=== PATIENT | female | born 1965 | race Caucasian/White ===

== ENCOUNTER 2019-11-27 15:29 | Emergency (ER) | payer BC, SELFPAY ==
--- NOTE | ~2019-11-27 | CT_ITS ---
EXAMINATION: CT abdomen pelvis w con EXAM DATE: 11/27/2019 16:36 INDICATION: Abdominal pain, epigastric pain. Symptoms for 3 days. TECHNIQUE: Spiral CT of the abdomen and pelvis was performed following intravenous injection of 100 m L Omnipaque 350. Axial, coronal and sagittal images were reviewed. The dose-length product (DLP) fo r this examination was 328.40 mGy-cm. The exposure was tailored according to patient size (auto mA e xposure control), and iterative reconstruction (ASIR) was used as additional dose reduction technique . There is no prior study for comparison. FINDINGS: The liver, spleen, adrenal glands and pancreas are unremarkable. Gallbladder is unremarkab le. No biliary obstruction. Portal and splenic veins are patent. Kidneys enhance symmetrically. T here is no hydronephrosis. The uterus is retroverted and morphologically normal. The bladder is u nremarkable. There is no retroperitoneal or pelvic lymphadenopathy. There is mild scattered arteri osclerotic disease. The appendix is normal. There is edema of the gastric pyloric wall, consistent with peptic ulcer dis ease. There is expected amount of colonic stool. No free intraperitoneal gas. The heart is betsey l in size. There are no pericardial or pleural effusions. The lung bases are unremarkable. The bon es are unremarkable. IMPRESSION: Moderate gastric antral wall edema consistent with peptic ulcer disease. No transmural ul ceration. Reviewed, dictated and finalized at location A. IMPRESSION: Moderate gastric antral wall edema consistent with peptic ulcer dis ease. No transmural ulceration.
[2019-11-27 15:33] VITALS: BP 173/82; PULSE 60; RESP 16; TEMP 36.5; O2SAT 100
--- NOTE | 2019-11-27 15:44 | ECG_ITS ---
Measurements Intervals [place] Rate: 54 P: 44 CT: 139 QRS: 43 QRSD: 97 T: 55 QT: 410 QTc: 391 Interpretive Statements SINUS BRADYCARDIA INCOMPLETE RIGHT BUNDLE BRANCH BLOCK BASELINE ARTIFACT- I, III BORDERLINE ECG Electronically Signed On 11-27-2019 18:14:47 CDT by Jarad Sanchez D.O.
--- NOTE | 2019-11-27 15:45 | ED.ABDPAIN ---
HPI - Abdominal Pain General Chief Complaint: Abdominal Pain Stated Complaint: EPIGASTRIC PAIN X3D Time Seen by Provider: 11/27/19 15:41 Source: patient Mode of arrival: ambulatory Limitations: no limitations History of Present Illness HPI narrative: Pt c/o epigastric pain, burning, 01/07, non radiating, started today. Denies cp, sob, n/v/d or fever. Radiation: none Migration to: no migration Exacerbating factors: nothing Relieving factors: nothing Associated symptoms: denies other symptoms Related Data Home Medications Medication Instructions Recorded Confirmed bupropion HCl [Wellbutrin XL] 150 mg PO QAM 11/27/19 Allergies Allergy/AdvReac Type Severity Reaction Status Date / Time No Known Allergies Allergy Mild Verified 11/27/19 15:37 Review of Systems Review of Systems: All systems reviewed & are unremarkable except as noted in HPI and below Constitutional: Constitutional: Denies body ache(s), Denies chills, Denies excessive sweating, Denies fatigue, Denies fever(s), Denies headache(s), Denies lethargy, Denies malaise, Denies weakness and Denies weight loss Eyes: Eyes: Denies blurry vision, Denies change in vision and Denies loss of vision ENT: Denies dizziness, Denies ear discharge, Denies headache(s), Denies lip swelling, Denies epistaxis, Denies nasal congestion, Denies neck pain, Denies throat swelling and Denies tongue swelling Cardiovascular: Cardiovascular: Denies chest pain, Denies chest pain at rest, Denies chest pain with activity, Denies diaphoresis, Denies rapid heart rate, Denies edema, Denies irregular heart rhythm, Denies lightheadedness, Denies palpitations, Denies dyspnea and Denies dyspnea on exertion Respiratory: Respiratory: Denies chest congestion, Denies cough, Denies hemoptysis, Denies dyspnea and Denies dyspnea on exertion Gastrointestinal: Gastrointestinal: Denies melena, Denies hematochezia, Denies diarrhea, Denies nausea, Denies vomiting and Denies hematemesis Musculoskeletal: Musculoskeletal: Denies abnormal gait, Denies deformity, Denies joint swelling, Denies limited range of motion, Denies neck pain and Denies numbness Neurologic: Denies Abnormal speech present, Denies abnormal gait, Denies confusion, Denies dizziness, Denies headache(s), Denies focal weakness, Denies loss of vision, Denies numbness, Denies Other visual disturbances, Denies Sensory deficit (Neuro) and Denies weakness Psychiatric: Psychiatric: Denies confusion, Denies depression, Denies auditory hallucinations, Denies homicidal ideation and Denies suicidal ideation Endocrine: Endocrine: Denies cold intolerance, Denies excessive sweating, Denies fatigue, Denies heat intolerance and Denies palpitations Hematologic/Lymphatic: Hematologic/Lymphatic: Denies easy bleeding and Denies easy bruising Allergic/Immunologic: Allergic/Immunologic: Denies lip swelling, Denies throat swelling and Denies tongue swelling Exam Const: General: cooperative, healthy appearing, comfortable, no acute distress, well developed, alert and awake; No confusion Orientation/consciousness: oriented to person, oriented to place, oriented to time, patient oriented x3 and No confusion Limitations: no limitations HENMT: Head: normal to inspection, normocephalic and atraumatic Ears: hearing grossly normal bilaterally, TM normal on the right and TM normal on the left General nose exam: Normal external nose present, Normal nares present and No nasal discharge present Face and sinus: normal facial exam Mouth: Yes Normal oral and palatal mucosa present, Yes lip normal, Yes tongue normal and Yes oropharynx normal Throat: posterior oropharynx normal, tonsils normal and uvula midline Eyes: General: appearance normal, both eyes and all related structures Pupils: Equal, round and reactive pupils present EOM: EOMs intact bilaterally Neck: Neck: normal visual inspection, full ROM, no lymphadenopathy and no meningeal signs Chest: Chest palpation & inspection: n
[2019-11-27] MEDS: SODIUM CHLORIDE 0.9% IV 1,000 ML 999 ML IV CONT (15:55)
[2019-11-27 16:01] LABS: Basophils Percent Auto 0.3 % (0.2-1.2); Eosinophils Absolute Auto 0.1 K/mm3 (0-0.3); Hematocrit 39.8 % (37.0-47.0); Hemoglobin 13.2 g/dL (12.0-15.0); Immature Granulocyte Absolute 0.02 K/mm3 (0.00-0.031); Immature Granulocyte Percent A 0.3 % (0-0.5); Lymphocytes Absolute Auto 2.47 K/mm3 (0.9-3.2); Lymphocytes Percent Auto 31.5 % (18.3-44.2); Mean Corpuscular HGB Conc 33.2 g/dl (32-36); Mean Corpuscular Hemoglobin 29.3 pg (26-34); Mean Corpuscular Volume 88.4 fl (80-100); Mean Platelet Volume 10.9 fl (7.4-10.4); Monocytes Absolute Auto 0.6 K/mm3 (0.1-0.6); Monocytes Percent Auto 7.3 % (2.6-8.5); Neutrophils Absolute Auto 4.7 K/mm3 (1.3-6.7); Neutrophils Percent Auto 59.6 % (45.5-73.1); Platelet Count Result 285 k/mm3 (150-375); Red Cell Distribution Width 12.3 % (11.5-14.5); White Blood Count 7.9 K/mm3 (4.5-10.0)
[2019-11-27 16:03] LABS: Add Urine Microscopic? NO; Appearance Urine Clear (Clear); Bilirubin Urine Negative (Negative); Blood Urine Negative (Negative); Color Urine Colorless (Yellow); Glucose Urine UA Negative (Negative); Ketones Urine Negative (Negative); Leukocyte Esterase Ur Negative LEU/UL (Negative); Nitrate Urine Negative (Negative); Protein Urine Negative (Negative); Specific Grav Ur 1.005 (1.001-1.035); Urobilinogen Urine Negative mg/dL (<2.0)
[2019-11-27 16:13] LABS: Alanine Aminotransferase 21 U/L (4-35); Albumin Level 4.5 g/dL (3.5-5.1); Alkaline Phosphatase 65 U/L (38-126); Aspartate Amino Transferase 29 U/L (14-36); Bilirubin,Total 0.3 mg/dL (0.2-1.3); Blood Urea Nitrogen 9 mg/dL (7-17); Calcium 9.2 mg/dL (8.4-10.2); Carbon Dioxide 30 mmol/L (22-30); Chloride 101 mmol/L (98-107); Estimated CRCL calculation 53 ml/min; Estimated Glomerular Filt Rate > 60; Glucose 119 mg/dL (65-105); Lipase 117 U/L (23-300); Potassium 3.5 mmol/L (3.4-5.0); Sodium 138 mmol/L (137-145)
[2019-11-27 17:24] LABS: Troponin I < 0.012 ng/mL (0.000-0.034)
== END 2019-11-27 17:05 | disposition home or self-care (01) ==
PROVIDERS: Emergency Medicine; Emergency Provider Emergency Medicine; PCP Physician Assistant
DX: K27.9 Peptic ulcer, site unspecified, unspecified as acute or chronic, without hemorrhage or perforation (principal); R00.1 Bradycardia, unspecified; I45.10 Unspecified right bundle-branch block
CPT/HCPCS: 36415; 74177; 80053; 81003; 81025; 83690; 84484; 85025; 93005; 96360; 99284; J7030; Q9967

== ENCOUNTER 2020-01-25 04:25 | Outpatient (CLI) | payer BC, SELFPAY ==
[2020-01-25 18:08] LABS: SARS-CoV-2 RNA PCR Negative
== END 2020-01-25 04:26 | disposition home or self-care (01) ==
LOC: ANHCOVIDDT 04:26
PROVIDERS: PCP Physician Assistant; Visit Provider Internal Medicine Gastroenterology
DX: Z01.818 Encounter for other preprocedural examination (principal); Z11.59 Encounter for screening for other viral diseases
CPT/HCPCS: 87635; C9803; U0003

== ENCOUNTER 2020-01-28 00:43 | Day surgery (SDC) | payer BC, SELFPAY ==
[2020-01-22 12:19] VITALS: BMI 24.5
[2020-01-28 06:31] VITALS: BP 145/72; PULSE 64; RESP 16; TEMP 36.4; O2SAT 100
[2020-01-28] MEDS: LACTATED RINGERS 1,000 ML 150 ML IV CONT (06:42)
[2020-01-28 06:44] VITALS: BMI 24.0
--- NOTE | 2020-01-28 07:17 | WPDANESEPPF ---
Anes - Initial Pre Proc Eval Procedure: Operation Date: 01/28/20 07:30 Proposed Procedures p Esophagogastroduodenoscopy - Zheng Wells MD Date/Time: 01/28/20 07:17 Surgeon: Zheng Wells MD Pre Op Diagnosis: Gastric Ulcer Patient Data Age: 54 Gender: F Height: 5 ft 5 in Weight: 65.6 kg Last Vital Signs Temp 36.4 C L 01/28/20 06:31 Pulse 64 01/28/20 06:31 Resp 16 01/28/20 06:31 BP 145/72 H 01/28/20 06:31 Pulse Ox 100 01/28/20 06:31 Allergies Allergy/AdvReac Type Severity Reaction Status Date / Time No Known Allergies Allergy Mild Verified 01/28/20 06:31 Home Medications Medication Instructions Recorded Confirmed Type bupropion HCl [Wellbutrin XL] 150 mg PO QAM 11/27/19 01/28/20 History omeprazole 20 mg PO DAILY #10 cap 11/27/19 01/28/20 Rx cholecalciferol (vitamin D3) 25 mcg PO DAILY 01/22/20 01/28/20 History [Vitamin D3] multivitamin,rx-kvrb-lsgyljam 1 tablet PO DAILY 01/22/20 01/28/20 History [Complete Multivitamin] Patient hx anesthesia problems: none Family hx anesthesia problems: none PMFSH Past Medical History Medical History Vapes nicotine containing substance Anes - Eval Final PreProcedure Day of Procedure 01/28/20 07:17 Patient weight: normal Heart: regular rate and rhythm Lungs: decreased breath sounds Airway: Mallampati scale class II Neurological: alert and oriented Last oral intake: >/= 8 hours ASA classification: III Emergent: no Anesthetic plan: proceed Anesthesia type and monitoring: general GIVS and standard monitoring Informed Consent: The patient's anesthetic plan and its attendant risks and benefits were discussed with the patient/family/POA. Questions were solicited and answers provided to the satisfaction of the patient/family/POA.
--- NOTE | 2020-01-28 07:33 | P.CONGI_ITS ---
Assessment and Plan Assessment and plan (1) Gastric ulcer: Code(s): K25.9 - Gastric ulcer, unspecified as acute or chronic, without hemorrhage or perforation Status: Acute Assessment and Plan: Patient with symptoms of substernal chest pain. Abnormal CT scan in the ER suggesting gastric ulcer. Patient is previously took nonsteroidal anti- inflammatory agents which she has discontinued. She has been treated with omeprazole 20 mg p.o. daily for 2 months. Currently without symptoms. Plan is for follow-up EGD to document healing of this ulcer. Biopsy for H pylori will be obtained. Patient should continue to limit nonsteroidal anti-inflammatory agents at all possible for (2) Abnormal CT scan: Code(s): R93.89 - Abnormal findings on diagnostic imaging of other specified body structures Status: Acute Assessment and Plan: CT scan in the ER 2 months ago suggesting gastric ulcer. She has now been treated with PPI for 2 months. GI Consult Note Consult date/time: 01/28/20 07:33 HPI: Nidhi Shaver is a 54 year old female seen in evaluation at the request of Dr Steve Mccullough.Patient reports that in October she experienced substernal chest pain. This prompted her to go to the emergency room where CT scan was performed suggesting that she had a gastric ulcer. Edema and thickening of the gastric wall with of the stomach was identified. Patient has previously taken a large amount of Aleve as treatment for foot pain. She has subsequently discontinued this and been taking omeprazole 20 mg p.o. daily over the last 2 months. She currently denies any abdominal pain. She denies any bleeding. Her weight has remained stable. Family history noncontributory. It is been 10 years since her last screening colonoscopy. Review of Systems Review of Systems: All systems reviewed & are unremarkable except as noted in HPI and below PMFSH Past Medical History Medical History Vapes nicotine containing substance Meds Home Medications and Allergies Home Medications Medication Instructions Recorded Confirmed Type bupropion HCl [Wellbutrin XL] 150 mg PO QAM 11/27/19 01/28/20 History omeprazole 20 mg PO DAILY #10 cap 11/27/19 01/28/20 Rx cholecalciferol (vitamin D3) 25 mcg PO DAILY 01/22/20 01/28/20 History [Vitamin D3] multivitamin,nu-iimu-kqkfnkrj 1 tablet PO DAILY 01/22/20 01/28/20 History [Complete Multivitamin] Allergies Allergy/AdvReac Type Severity Reaction Status Date / Time No Known Allergies Allergy Mild Verified 01/28/20 06:31 Vital Signs Vital Signs - 24 hr 01/28/20 06:31 Temperature 36.4 C L Pulse Rate 64 Respiratory Rate 16 Blood Pressure 145/72 H Pulse Oximetry 100 Exam Narrative: Exam Narrative: physical exam reveals patient to be alert. Vital signs stable. HEENT exam unremarkable. Lungs are clear to auscultation and percussion. Heart is without murmur or extra sounds. Abdominal exam bowel sounds are present soft nontender with no organomegaly. Digital external rectal exam deferred today.
[2020-01-28] MEDS: BENZOCAINE (*SP) 60 ML SPRAY CAN (HURRICAINE) 1 SPRAY MUCOUS MEM (07:34)
[2020-01-28 07:44] VITALS: BP 126/80; PULSE 65; RESP 19; O2SAT 99
[2020-01-28 07:54] VITALS: BP 117/72; PULSE 57; RESP 15; O2SAT 99
[2020-01-28 08:00] VITALS: BP 132/68; PULSE 51; RESP 15; O2SAT 99
== END 2020-01-28 08:17 | disposition home or self-care (01) ==
PROVIDERS: PCP Physician Assistant; Visit Provider Internal Medicine Gastroenterology
PROC: 0DJ08ZZ Inspection of Upper Intestinal Tract, Via Natural or Artificial Opening Endoscopic (ICD-10-PCS; CPT 43235; principal; 2020-01-28 07:30)
DX: R93.3 Abnormal findings on diagnostic imaging of other parts of digestive tract (principal); F17.290 Nicotine dependence, other tobacco product, uncomplicated
CPT/HCPCS: 43239; 87081; J2704; J7120

== ENCOUNTER 2020-05-26 14:37 | Outpatient (CLI) | payer BC, SELFPAY ==
--- NOTE | ~2020-05-26 | MM_ITS ---
EXAMINATION: MM screening dee dee BI w jordan HISTORY: Screening mammogram, family history of breast cancer in her mother. TECHNIQUE: Craniocaudal and mediolateral oblique 3-D tomosynthesis images were obtained and synthetic 2-D images were generated. CAD analysis was submitted and interpreted. COMPARISON: 03/12/2019, 03/01/2018, 02/08/2018, 01/30/2017 BREAST PARENCHYMAL COMPOSITION: The breasts are heterogeneously dense, which may obscure small masses . FINDINGS: There is no evidence of suspicious mass, calcification, or architectural distortion to sugg est malignancy in either breast. There has been no suspicious interval change. IMPRESSION: 1. No mammographic evidence of malignancy. 2. Recommend routine screening mammography in one year. BI-RADS Category 1: Negative Reviewed, dictated and finalized at location A.
== END 2020-05-26 14:38 | disposition home or self-care (01) ==
PROVIDERS: PCP Physician Assistant; Visit Provider Physician Assistant
DX: Z12.31 Encounter for screening mammogram for malignant neoplasm of breast (principal)
CPT/HCPCS: 77063; 77067

== ENCOUNTER 2020-06-09 12:22 | Outpatient (CLI) | payer BC, SELFPAY ==
--- NOTE | ~2020-06-09 | XR_ITS ---
EXAMINATION: XR shoulder RT min 2V DATE: 06/09/2020 12:51 INDICATION: Shoulder pain and limited range of motion. Adhesive capsulitis. TECHNIQUE: AP internally and externally rotated, AP oblique externally rotated and transscapular Y vi ews of the right shoulder were obtained. COMPARISON: None FINDINGS: Normal alignment. No fracture. Glenohumeral joint is normal. Acromioclavicular joint is normal. Soft tissues are unremarkable. Visualized portion of the right lung is clear. IMPRESSION: Negative right shoulder radiographs. Reviewed, dictated and finalized at location A. ITION NOTCHER
== END 2020-06-09 12:23 | disposition home or self-care (01) ==
LOC: ANHIMG 12:31
PROVIDERS: PCP Physician Assistant; Visit Provider Physician Assistant
DX: M75.01 Adhesive capsulitis of right shoulder (principal)
CPT/HCPCS: 73030

== ENCOUNTER 2021-10-26 10:48 | Outpatient (CLI) | payer OTHER, SELFPAY ==
--- NOTE | ~2021-10-26 | MM_ITS ---
EXAMINATION: MM screening dee dee BI w jordan HISTORY: Screening mammogram, family history of breast cancer in her mother. TECHNIQUE: Craniocaudal and mediolateral oblique 3-D tomosynthesis images were obtained and synthetic 2-D images were generated. CAD analysis was submitted and interpreted. COMPARISON: 05/26/2020, 03/12/2019, 03/01/2018, 02/08/2018 BREAST PARENCHYMAL COMPOSITION: The breasts are heterogeneously dense, which may obscure small masses . FINDINGS: There is no suspicious mass, calcification, or architectural distortion to suggest malignan cy in either breast. There has been no suspicious interval change. IMPRESSION: 1. No mammographic evidence of malignancy. 2. Recommend routine screening mammography in one year. BI-RADS Category 1: Negative Reviewed, dictated and finalized at location A.
== END 2021-10-26 10:49 | disposition home or self-care (01) ==
PROVIDERS: PCP Physician Assistant; Visit Provider Physician Assistant
DX: Z12.31 Encounter for screening mammogram for malignant neoplasm of breast (principal)
CPT/HCPCS: 77063; 77067

== ENCOUNTER → 2022-01-07 02:23 | Outpatient (CLI) | payer OTHER, SELFPAY ==
[2022-01-07 16:50] LABS: SARS-CoV-2 RNA PCR Negative
== END ==
PROVIDERS: PCP Physician Assistant; Visit Provider Physician Assistant
DX: Z20.822 Contact with and (suspected) exposure to COVID-19 (principal)
CPT/HCPCS: C9803; U0003; U0005

== ENCOUNTER 2022-05-31 01:18 | Day surgery (SDC) | payer OTHER, SELFPAY ==
[2022-05-19 10:43] VITALS: BMI 26.4
[2022-05-31 09:23] VITALS: BP 143/71; PULSE 71; RESP 17; TEMP 36.4; O2SAT 100; BMI 25.8
[2022-05-31] MEDS: LACTATED RINGERS 1,000 ML 150 ML IV CONT (09:31)
--- NOTE | 2022-05-31 09:49 | P.HP_ITS ---
History of Present Illness History of Present Illness Consent: Risks, benefits, and alternatives have been discussed and questions answered. Patient agrees to proceed with procedure. Chief complaint: neoplams screening Narrative: Nidhi Shaver is a 56 year old female presents for screening colonoscopy. Patient's current weight appetite and bowel movements are normal. Patient denies abdominal pain. She has had no bleeding. Family history is noncontribut ory. Patient's past medical history is significant for gastric ulcer in 2019 that has healed up. She did have a screening colonoscopy many years ago that was unremarkable. Review of Systems Review of Systems: Review of systems noncontributory. [facility]LY [facility] Past Medical History Medical History Vapes nicotine containing substance Social History Social History Smoking packs per day: 0.75 Smoking cigarettes per day: 15.0 Years smoked: 30 Smoking pack-years: 22.50 Smoking status: Former smoker Tobacco type: cigarettes Alcohol intake: never Substance use: never Substance use type: does not use Living arrangements: alone Spiritual care concerns: No Meds Home Medications and Allergies Home Medications Medication Instructions Recorded Confirmed Type bupropion HCl 150 mg 24 hr tablet, 150 mg PO QAM 11/27/19 05/31/22 History extended release (Wellbutrin XL) omeprazole 20 mg capsule,delayed 20 mg PO DAILY #10 caps 11/27/19 05/31/22 Rx release cholecalciferol (vitamin D3) 25 25 mcg PO DAILY 01/22/20 05/31/22 History mcg (1,000 unit) tablet (Vitamin D3) multivitamin,ny-jxhb-cibhmene 1 tablet PO DAILY 01/22/20 05/31/22 History (Complete Multivitamin tablet) Allergies Allergy/AdvReac Type Severity Reaction Status Date / Time No Known Allergies Allergy Mild Verified 05/31/22 09:22 Vital Signs Vital Signs - 24 hr 05/31/22 09:23 Temperature 97.5 F L Pulse Rate 71 Respiratory Rate 17 Blood Pressure 143/71 H Pulse Oximetry 100 Oxygen Delivery Room Air Exam Narrative: Physical exam reveals patient be alert. Vital signs stable. HEENT exam is unremarkable. Patient is anicteric. Lungs are clear to auscultation and percussion. Heart is without murmur or extra sounds. Abdomen bowel sounds are present soft nontender with no organomegaly. Digital external rectal exam is normal. Assessment and Plan Assessment and plan (1) Encounter for screening colonoscopy: Code(s): Z12.11 - Encounter for screening for malignant neoplasm of colon Status: Acute Assessment and Plan: Patient presents for screening colonoscopy. She appears to be at average risk for colon polyps. Further recommendations will be given after endoscopy.
--- NOTE | 2022-05-31 09:55 | WPDANESEPPF ---
Anes - Initial Pre Proc Eval Procedure: Operation Date: 05/31/22 10:30 Proposed Procedures p Screening Colonoscopy - Zheng Wells MD Date/Time: 05/31/22 09:55 Surgeon: Zheng Wells MD Pre Op Diagnosis: neoplams screening Patient Data Age: 56 Gender: F Height: 1.63 m Weight: 68.2 kg Last Vital Signs Temp 97.5 F L 05/31/22 09:23 Pulse 71 05/31/22 09:23 Resp 17 05/31/22 09:23 BP 143/71 H 05/31/22 09:23 Pulse Ox 100 05/31/22 09:23 O2 Del Method Room Air 05/31/22 09:23 Allergies Allergy/AdvReac Type Severity Reaction Status Date / Time No Known Allergies Allergy Mild Verified 05/31/22 09:22 Home Medications Medication Instructions Recorded Confirmed Type bupropion HCl 150 mg 24 hr tablet, 150 mg PO QAM 11/27/19 05/31/22 History extended release (Wellbutrin XL) omeprazole 20 mg capsule,delayed 20 mg PO DAILY #10 caps 11/27/19 05/31/22 Rx release cholecalciferol (vitamin D3) 25 25 mcg PO DAILY 01/22/20 05/31/22 History mcg (1,000 unit) tablet (Vitamin D3) multivitamin,gs-evxe-jyjjotkh 1 tablet PO DAILY 01/22/20 05/31/22 History (Complete Multivitamin tablet) Patient hx anesthesia problems: none Family hx anesthesia problems: none Results Review: All pre-operative results and documents have been reviewed as part of the pre-operative evaluation. FORMERLY [facility] Past Medical History Medical History Vapes nicotine containing substance Social History Social History Smoking packs per day: 0.75 Smoking cigarettes per day: 15.0 Years smoked: 30 Smoking pack-years: 22.50 Smoking status: Former smoker Tobacco type: cigarettes Alcohol intake: never Substance use: never Substance use type: does not use Living arrangements: alone Spiritual care concerns: No Anes - Eval Final PreProcedure Day of Procedure 05/31/22 09:55 Patient weight: normal Heart: regular rate and rhythm Lungs: clear to auscultation Airway: Mallampati scale class II Neurological: alert and oriented Last oral intake: >/= 8 hours ASA classification: II Emergent: no Anesthetic plan: proceed Anesthesia type and monitoring: general GIVS and standard monitoring Results Review: All pre-operative results and documents have been reviewed as part of the pre-operative evaluation. Informed Consent: The patient's anesthetic plan and its attendant risks and benefits were discussed with the patient/family/POA. Questions were solicited and answers provided to the satisfaction of the patient/family/POA.
[2022-05-31 10:34] VITALS: BP 114/67; PULSE 64; RESP 20; O2SAT 99
[2022-05-31 10:44] VITALS: BP 100/62; PULSE 69; RESP 19; O2SAT 99
[2022-05-31 10:51] VITALS: BP 121/75; PULSE 68; RESP 15; O2SAT 99
== END 2022-05-31 10:58 | disposition home or self-care (01) ==
PROVIDERS: PCP Physician Assistant; Visit Provider Internal Medicine Gastroenterology
PROC: 0DJD8ZZ Inspection of Lower Intestinal Tract, Via Natural or Artificial Opening Endoscopic (ICD-10-PCS; CPT 45378; principal; 2022-05-31 10:30)
DX: Z12.11 Encounter for screening for malignant neoplasm of colon (principal); K64.8 Other hemorrhoids; K57.30 Diverticulosis of large intestine without perforation or abscess without bleeding; F17.290 Nicotine dependence, other tobacco product, uncomplicated
CPT/HCPCS: 45378; J2704; J7120

== ENCOUNTER 2022-12-21 10:11 | Outpatient (CLI) | payer OTHER, SELFPAY ==
--- NOTE | ~2022-12-21 | MM_ITS ---
EXAMINATION: MM screening dee dee BI w jordan HISTORY: Screening mammogram, family history of breast cancer in her mother. TECHNIQUE: Craniocaudal and mediolateral oblique 3-D tomosynthesis images were obtained and synthetic 2-D images were generated. CAD analysis was submitted and interpreted. COMPARISON: 10/26/2021, 05/26/2020, 03/12/2019 BREAST PARENCHYMAL COMPOSITION: The breasts are heterogeneously dense, which may obscure small masses . FINDINGS: No suspicious mass, calcification, or architectural distortion are identified in either berto ast to suggest malignancy. There has been no suspicious interval change. IMPRESSION: 1. No mammographic evidence of malignancy. 2. Recommend routine screening mammography in one year. BI-RADS Category 1: Negative Reviewed, dictated and finalized at location A.
== END 2022-12-21 10:12 | disposition home or self-care (01) ==
LOC: ANHIMG 10:14
PROVIDERS: PCP Physician Assistant; Visit Provider Physician Assistant
DX: Z12.31 Encounter for screening mammogram for malignant neoplasm of breast (principal)
CPT/HCPCS: 77063; 77067

== ENCOUNTER 2023-04-25 11:56 | Outpatient (CLI) | payer OTHER, SELFPAY ==
--- NOTE | ~2023-04-25 | XR_ITS ---
XR knee LT min 4V 04/25/2023 12:30 Indication: Left knee pain Procedure: 5 views left knee Comparison: No prior studies for comparison. Findings: There is mild patellofemoral compartment osteoarthritis. No fracture, subluxation or disloc ation. No significant joint effusion. No foreign bodies. Impression: 1: Mild patellofemoral compartment osteoarthritis Reviewed, dictated and finalized at location L. Impression: 1: Mild patellofemoral compartment osteoarthritis
--- NOTE | ~2023-04-25 | XR_ITS ---
XR hip LT min 2V 04/25/2023 12:30 Indication: Left hip pain Procedure: AP pelvis and 2 views left hip Comparison: No prior studies for comparison. Findings: Pelvic rings are intact. No fracture or traumatic malalignment. No significant soft tissue abnormality. No foreign bodies. Sacral foramen are symmetric. Impression: 1: No significant bone or joint abnormality. Reviewed, dictated and finalized at location L. Impression: 1: No significant bone or joint abnormality.
== END 2023-04-25 11:57 | disposition home or self-care (01) ==
PROVIDERS: PCP Physician Assistant; Visit Provider Physician Assistant
DX: M17.12 Unilateral primary osteoarthritis, left knee (principal)
CPT/HCPCS: 73502; 73564

== ENCOUNTER 2024-03-05 12:33 | Outpatient (CLI) | payer OTHER, SELFPAY ==
--- NOTE | ~2024-03-05 | MM_ITS ---
EXAMINATION: MM screening dee dee BI w jordan HISTORY: Screening TECHNIQUE: Craniocaudal and mediolateral oblique 3-D tomosynthesis images were obtained and synthetic 2-D images were generated. CAD analysis was submitted and interpreted. COMPARISON: Comparison to multiple prior studies sequentially, with oldest reviewed study dated 02/08. BREAST PARENCHYMAL COMPOSITION: Not dense: There are scattered areas of fibroglandular density. FINDINGS: There is a developing asymmetry of the upper outer quadrant of the left breast, middle thir d. The) is stable without evidence for malignancy. IMPRESSION: 1. Developing left breast asymmetry. 2. Additional mammographic views and possible breast ultrasound are recommended. BI-RADS Category 0: Incomplete: Needs additional imaging evaluation. Reviewed, dictated and finalized at location B. IMPRESSION: 1. Developing left breast asymmetry. 2. Additional mammographic views and possible breast ultrasound are recommended . BI-RADS Category 0: Incomplete: Needs additional imaging evaluation.
== END 2024-03-05 12:34 ==
LOC: MICIMG 12:34
PROVIDERS: PCP Family Medicine; Visit Provider Physician Assistant
DX: Z12.31 Encounter for screening mammogram for malignant neoplasm of breast (principal); N64.89 Other specified disorders of breast
CPT/HCPCS: 77063; 77067

== ENCOUNTER 2024-04-02 10:01 | Outpatient (CLI) | payer OTHER, SELFPAY ==
--- NOTE | ~2024-04-02 | MMUS_ITS ---
EXAMINATION: MM diagnostic dee dee LT w jordan, US breast LT limited HISTORY: Follow-up left breast asymmetry TECHNIQUE: Additional 3-D tomosynthesis images of the left breast were performed and synthetic 2-D im ages were generated. CAD analysis was submitted and interpreted. High resolution Limited left breast ultrasound was performed. COMPARISON: Comparison to multiple prior studies sequentially, with oldest reviewed study dated 03/12. BREAST PARENCHYMAL COMPOSITION: Not dense: There are scattered areas of fibroglandular density. FINDINGS: MAMMOGRAPHIC FINDINGS: There are no suspicious masses, calcifications or architectural distortion in the left breast to sugg est malignancy. ULTRASOUND: Limited left breast ultrasound: At 3:00 near the nipple there is a 5 mm cyst. No suspicious masses to suggest malignancy. IMPRESSION: 1. No evidence for malignancy in the left breast. 2. Routine yearly screening mammogram and regular clinical breast examination are recommended. BI-RADS Category 2: Benign finding(s). Reviewed, dictated and finalized at location B. IMPRESSION: 1. No evidence for malignancy in the left breast. 2. Routine yearly screening mammogram and regular clinical breast examination a re recommended. BI-RADS Category 2: Benign finding(s).
== END 2024-04-02 10:02 | disposition home or self-care (01) ==
PROVIDERS: PCP Family Medicine; Visit Provider Family Medicine
DX: N64.89 Other specified disorders of breast (principal)
CPT/HCPCS: 76642; 77061; 77065; G0279

== ENCOUNTER 2025-03-25 13:17 | Outpatient (CLI) | payer OTHER, SELFPAY ==
--- NOTE | ~2025-03-25 | MM_ITS ---
EXAMINATION: MM screening dee dee BI w jordan HISTORY: Screening TECHNIQUE: Craniocaudal and mediolateral oblique 3-D tomosynthesis images were obtained and synthetic 2-D images were generated. CAD analysis was submitted and interpreted. COMPARISON: Comparison to multiple prior studies sequentially, with oldest reviewed study dated 01/30/2017. BREAST PARENCHYMAL COMPOSITION: There are scattered areas of fibroglandular density. FINDINGS: There is no evidence of suspicious mass, calcification, or architectural distortion to suggest malignancy in either breast. IMPRESSION: 1. No mammographic evidence of malignancy. 2. Recommend routine screening mammography in one year. BI-RADS Category 1: Negative Reviewed, dictated and finalized at location B.
--- OUTSIDE RECORDS SUMMARY | 2025-03-25 13:23 | XMS_ITS | Clinical Summary ---
Author Organization [facility] Address [address] [place] [address] Care Team Providers Care Family Service Aide Name Role Phone Francy Bloom Primary Care Provider [phone] Allergies No known active allergies Social History Tobacco Use Types Packs/Day Years Used Date Smoking Tobacco: Never Assessed Personal Safety Answer Date Recorded Getting School Help Needed Not on file 10/14 Comments No Sex and Gender Information Value Date Recorded Sex Assigned at Not on file Legal Sex Female 11:32 AM CDT Gender Identity Not on file Sexual Orientation Not on file Last Filed Vital Signs Vital Sign Reading Time Taken Comments Blood Pressure 173/108 02/20/2021 4:02 PM CDT Pulse 61 02/20/2021 4:02 PM CDT Temperature 36.6 C (97.8 F) 02/20/2021 11:33 AM CDT Respiratory Rate 18 02/20/2021 4:02 PM CDT Oxygen Saturation 100% 02/20/2021 4:02 PM CDT Inhaled Oxygen Concentration - - Weight 72.6 kg (160 lb) 02/20/2021 11:33 AM CDT Height 162.6 cm (5' 4) 02/20/2021 11:33 AM CDT Body Mass Index 27.46 02/20/2021 11:33 AM CDT Plan of Treatment Not on file Care Teams Family Service Aide Relationship Specialty Start Date End Date Francy Bloom PA [address] [place] [id number] PCP - General Family Medicine 02/20/21
--- OUTSIDE RECORDS SUMMARY | 2025-03-25 13:23 | XMS_ITS | Clinical Summary ---
Author Organization [facility] Care Team Providers Care Formulation Scientist Name Role Phone Unavailable Primary Care Provider Unavailabl e Immunizations Immunization Administration Dates Next Due Covid-19, Mrna, Lnp-s, Pf, 30 Mcg/0.3 Ml Dose (P fizer) 12/08/2020,11/12/2020 Social History Tobacco Use Types Packs/Day Years Used Date Smoking Tobacco: Never Assessed Comments Unknown Sex and Gender Information Value Date Recorded Sex Assigned at Not on file Legal Sex Female 12:43 PM [employer] Gender Identity Not on file Sexual Orientation Not on file Plan of Treatment Health Maintenance Due Date Last Done Comments Hepatitis C Virus (HCV) Screening 1965 Pap Smear 10/20/1984 Cervical Cancer Screening (CCS) 10/20/1993 HPV/Cotest 10/20/1993 Cologuard 10/20/2008 Colonoscopy 10/20/2008 Colorectal Cancer Screening 10/20/2008 Immunochemical Fecal Occult Blood 10/20/2008 Pneumococcal Immunization (5 0+ years) (1 of 1 - PCV) 10/20/2013 Zoster Immunization (1 of 2) 10/20/2013 SARS-COV-2 Immunization (3 - season) 2024 12/08/2020, 11/12/2020 Influenza Immunization (#1) 2025 Respiratory Syncytial Virus (RSV) Immunization (Adult) (1 - 1-dose 75+ series) 10/20/2038 DTaP/Tdap/Td Immunization Discontinued 03/20/2017 TdaP Immunization Completed 03/20/2017 Hepatitis B Immunization Aged Out No longer eligible based on patient's age to complete this topic Human Papillomavirus (HPV) Immunization Aged Out No longer eligible based on patient's age to complete this topic Meningococcal Immunization (ACWY) Aged Out No longer eligible based on patient's age to complete this topic Rotavirus Immunization Aged Out No lo nger eligible based on patient's age to complete this topic
== END 2025-03-25 13:18 | disposition home or self-care (01) ==
LOC: CHSIMG 13:18
PROVIDERS: PCP Family Medicine; Visit Provider Family Medicine
DX: Z12.31 Encounter for screening mammogram for malignant neoplasm of breast (principal)
CPT/HCPCS: 77063; 77067